=== PATIENT | female | born 1950 | race Caucasian/White ===

== ENCOUNTER 2024-06-02 11:26 | Emergency (ER) | payer MEDICARE, SELFPAY ==
[2024-06-02 11:50] VITALS: BP 106/64; PULSE 70; RESP 16; TEMP 37.1; O2SAT 97
--- NOTE | 2024-06-02 11:53 | ED.URI ---
HPI - URI/Sore Throat General Chief Complaint: Upper Respiratory Infection Stated Complaint: congestion,bilateral eye irritation Time Seen by Provider: 06/02/24 11:53 Source: patient Mode of arrival: ambulatory Limitations: no limitations History of Present Illness HPI Narrative: 73 yo F presents with complaint of cough, congestion, fatigue, body aches for 3-4 days. Reports redness, drainage from bilateral eyes for 2 days. No vision changes. Taking any [id number] medications to treat congestion. Patient reports history of leukemia, concerned she may need antibiotic. Not currently doing any treatment for leukemia. All systems reviewed and negative except as noted above. Related Data Home Medications ?Medication ?Instructions ?Recorded ?Confirmed ?Last Taken ?Type adk 10 06/02/24 Unknown History calcium 600 mg (as 1 tablet PO DAILY 06/02/24 06/02/24 Unknown History carbonate)-vitamin D3 5 mcg (200 unit) tablet (Calcium 600 + D(3)) citrulline 250 mg-arginine 250 mg tablet PO 06/02/24 Unknown History tablet,extended release (Arginine-Citrulline Sustain) iodine 06/02/24 Unknown History levothyroxine 75 mcg tablet 75 mcg PO DAILY 06/02/24 06/02/24 Unknown History magnesium gluconate 12.5 mg 250 mg PO DAILY 06/02/24 06/02/24 Unknown History magnesium (250 mg) tablet methyl Fasctors 06/02/24 Unknown History multivitamin with minerals-folic 1 tablet PO BID 06/02/24 06/02/24 Unknown History acid 80 mcg chewable tablet (Centrum Adult 50 Plus) niacin 500 mg tablet 500 mg PO DAILY 06/02/24 06/02/24 Unknown History omega3 700 mg-dha 200 mg-epa 450 See Rx Instructions PO .COMPLEX 06/02/24 06/02/24 Unknown History mg-dpa 50 [id number] 50 mg capsule (Fisher-3 2100 with COQ10) pravastatin 80 mg tablet 80 mg PO 06/02/24 Unknown History tumeric 06/02/24 Unknown History Allergies Allergy/AdvReac Type Severity Reaction Status Date / Time No Known Allergies Allergy Verified 06/02/24 11:45 Review of Systems Review of Systems: CONSTITUTIONAL: Denies fever, chills, or sweats. Reports fatigue. EYES: Denies visual changes, redness, or discharge. ENT: Reports s rhinorrhea, congestion. Denies sore throat, or otalgia. CARDIOVASCULAR: Denies chest pain, palpitations, or edema. RESPIRATORY: Reports cough. Denies dyspnea. GASTROINTESTINAL: Denies abdominal pain, nausea, vomiting, or diarrhea. GENITOURINARY: Denies dysuria or hematuria. SKIN: Denies rash or itching. MUSCULOSKELETAL: Denies back pain, joint pain, or myalgia. NEUROLOGIC: Denies headache, numbness, or weakness. PSYCHIATRIC: Denies anxiety or depression. All other systems reviewed are negative, except as documented in HPI. PMFSH Comments At time of signature, agree with nursing past medical, surgical, social and family history. There is no relevant family history pertinent to the presenting complaint. Exam Narrative: GENERAL: This is a well-nourished, well-developed patient, in no apparent distress. HEAD: normocephalic, atraumatic. EYES: PERRL. A sclera and conjunctiva erythematous bilaterally EARS: External ears normal, auditory canals clear and without drainage, TMs normal without perforation. Hearing grossly intact. NOSE: External nose normal with congestion, clear nasal drainage, erythema to bilateral nares THROAT: Mucous membranes moist, posterior pharynx clear. NECK: Neck supple, non-tender without lymphadenopathy, masses or thyromegaly. CARDIOVASCULAR: Regular rate and rhythm without murmurs, gallops, or rubs. RESPIRATORY: Clear to auscultation. Breath sounds equal bilaterally. No wheezes, rales, or rhonchi. SKIN: warm, Dry, intact with no suspicious lesions or rash, good texture and turgor. NEURO: awake, alert, and oriented to person, place and time. There were no obvious focal neurologic abnormalities. EXTREMITIES: No joint tenderness, effusion, or edema noted. Course Course Level of Care: Express Care Visit Vital Signs Vital signs: Vital Signs Temperature 37.1 C 06/02/24 11:50 Pulse Rate 70 06/02/24 11:50 Respiratory Rate 16 06/02/24 11:50 Blood Pressure 106/64 06/02/24 11:50 Pulse Oximetry 97 06/02/24 11:50 Temperature 37.1 C 06/02/24 11:50 Pulse Rate 70 06/02/24 11:50 Respiratory Rate 16 06/02/24 11:50 Blood Pressure 106/64 06/02/24 11:50 Pulse Oximetry 97 06/02/24 11:50 Reviewed MDM - URI/Sore Throat MDM Narrative Medical decision making narrative: Patient positive for COVID. Will prescribe antiviral due to patient's comorbidities. Patient is well-appearing, nontoxic. Oxygen saturation 97% room air. Patient is aware of diagnosis, understands and agrees to treatment plan. Anticipatory guidance given. Patient agrees to follow-up as directed and is aware of reasons to seek care at the emergency department. Portions of this record may have been created with voice recognition software Discharge Plan Discharge Clinical Impression: COVID-19, Acute bacterial conjunctivitis of both eyes Patient Disposition: Home, Self-Care Condition: Stable Instructions: COVID-19 (Coronavirus Disease 2019) (ED) Additional Instructions: Your COVID test was positive today. COVID is a virus and symptoms may last 10-14 days. Take antiviral as prescribed. Take Tylenol every 6-8 hours as needed for pain and fever. Drink at least 64 oz water a day. Place antibiotic eyedrops into eyes as prescribed. Wash hands before and after placing eyedrops. Follow-up with your primary care physician as needed. Patient Language: Citizen Of [place] Prescriptions: New benzonatate 200 mg capsule 200 mg PO TID PRN (Reason: cough) Qty: 20 0RF polymyxin B sulf-trimethoprim 10,000 unit- 1 mg/mL drops 1 drp EACH EYE Q3H 7 Days Qty: 10 0RF Rx Instructions: while awake; do not exceed 6 doses in 24 hours Paxlovid 300 mg (150 mg x 2)-100 mg tablets,dose pack See Rx Instructions .ROUTE .COMPLEX Qty: 30 0RF Rx Instructions: take TWO 150 mg tablets of nirmatrelvir with ONE 100 mg tablet of ritonavir twice daily for 5 days No Action levothyroxine 75 mcg tablet 75 mcg PO DAILY niacin 500 mg tablet 500 mg PO DAILY pravastatin 80 mg tablet 80 mg PO Fisher-3 2100 with COQ10 [phone] mg capsule See Rx Instructions PO .COMPLEX Rx Instructions: orally; adk 10 Rx Instructions: A 1500 mcg D 250mcg K 250 mcg iodine Rx Instructions: 12.5 mg 10 mg Zinc 200 mcg selenium calcium carbonate-vitamin D3 [Calcium 600 + D(3)] 600 mg-5 mcg (200 unit) tablet 1 tablet PO DAILY Arginine-Citrulline Sustain 250-250 mg tablet extended release PO methyl Fasctors Rx Instructions: 90 mg riboflavn 45 B6 5 mg Folate 3 mg B12 1.8 Betaine Anhydrous Centrum Adult 50 Plus 80 mcg tablet,chewable 1 tablet PO BID tumeric Rx Instructions: 600 mg 1 daily magnesium gluconate 12.5 mg magne- sium (250 mg) tablet 250 mg PO DAILY Follow-up/Referrals: UNKNOWN,DOCTOR [Primary Care Provider] - Time of Disposition: 12:14
[2024-06-02 12:22] LABS: EDCOVIDSCREEN Positive (Negative); EDINFLUASCREEN Negative (Negative); EDINFLUBSCREEN Negative (Negative)
== END 2024-06-02 12:19 | disposition home or self-care (01) ==
PROVIDERS: Emergency Provider Nurse Practitioner Family
DX: U07.1 COVID-19 (principal); H10.33 Unspecified acute conjunctivitis, bilateral
CPT/HCPCS: 87426; 87804; 99203; G0463